=== PATIENT | male | born 1965 | race Caucasian/White ===

== ENCOUNTER 2017-09-25 10:59 | Emergency (ER) | payer MEDICAID ==
[~2017-09-25] VITALS: Ht 165.1 cm; Wt 81.8 kg
[2017-09-25] MEDS ORDERED: AMOX TR/POT CLAV 875 MG/125 MG TABLET PO ONE (11:45)
[2017-09-25 12:52] VITALS: BP 148/91
== END 2017-09-25 12:54 | disposition home or self-care (01) ==
LOC: EMS 11:01
DX: H66.012 Acute suppurative otitis media with spontaneous rupture of ear drum, left ear (principal); H66.91 Otitis media, unspecified, right ear; F10.239 Alcohol dependence with withdrawal, unspecified; F17.210 Nicotine dependence, cigarettes, uncomplicated; Y90.9 Presence of alcohol in blood, level not specified; Z59.0 Homelessness
CPT/HCPCS: 99283; 99406